=== PATIENT | female | born 1990 | race Two or more races ===

== ENCOUNTER 2018-06-17 14:26 | Emergency (ER) | payer OTHER ==
[~2018-06-17] VITALS: Ht 162.6 cm; Wt 60.3 kg
--- NOTE | 2018-06-17 14:39 | NUR ---
AAOX3, Finger Pain "was at work slipped grabbed a metal rail finger snapped". CMS WNL. RR IS EVEN AND UNLABORED WITH NAD NOTED. AWAITING MD FOR EVAL.
[2018-06-17] MEDS ORDERED: LIDOCAINE HCL/MPF 1% 30 ML VIAL IJ ONE (14:49)
[2018-06-17] MEDS ORDERED: HYDROCODONE/APAP 5/325MG 1 EACH TABLET ONE (14:57)
[2018-06-17] MEDS ORDERED: CEPHALEXIN MONOHYDRATE 500 MG CAPSULE PO ONE ×2 (14:58→15:00)
[2018-06-17] MEDS ORDERED: LIDOCAINE HCL/PF 1% 30 ML VIAL TP ONE (15:00)
[2018-06-17] MEDS ORDERED: HYDROCODONE/APAP 5/325MG 1 EACH TABLET PO ONE (15:00)
[2018-06-17 16:11] VITALS: BP 132/84
--- NOTE | 2018-06-17 16:12 | NUR ---
Patient discharged to home in stable condition. Written and verbal after care instructions given. Patient verbalizes understanding of instruction.
== END 2018-06-17 16:12 | disposition home or self-care (01) ==
LOC: ER 14:26
DX: S62.603A Fracture of unspecified phalanx of left middle finger, initial encounter for closed fracture (principal); S61.215A Laceration without foreign body of left ring finger without damage to nail, initial encounter; M20.012 Mallet finger of left finger(s); W01.0XXA Fall on same level from slipping, tripping and stumbling without subsequent striking against object, initial encounter; Y93.89 Activity, other specified; Y92.89 Other specified places as the place of occurrence of the external cause; Y99.8 Other external cause status
CPT/HCPCS: 12001; 29130; 73140; 99283; A4606; A6403; J3490